=== PATIENT | female | born 1990 | race Caucasian/White ===

== ENCOUNTER 2022-10-26 08:25 | Emergency (ER) | payer BC, SELFPAY ==
[2022-10-26 08:26] VITALS: BP 146/100; PULSE 73; RESP 15; TEMP 36.2; O2SAT 99; BMI 39.1
--- NOTE | 2022-10-26 08:45 | ED.VIS.DENTA ---
HPI History of Present Illness Chief Complaint: Dental Narrative Narrative: 32-year-old female presenting with left-sided dental pain. She states in the left mandible. Patient was recently treated on the for upper tooth pain from the urgent care. She was put on amoxicillin. She finished the course. She has a dental appointment on the third. She now has pain in the lower jaw which is new. No facial swelling. No difficulty swallowing or breathing. No fevers, chills. PFSH PFSH Medical History no medical history Home Medications amoxicillin 875 mg-potassium clavulanate 125 mg tablet 1 tab PO BID #20 tabs 10/26/22 [Rx Last Taken Unknown] Allergy/AdvReac Type Severity Reaction Status Date / Time No Known Allergies Allergy Verified 10/26/22 08:27 Family History no significant family his Surgical History no surgical history Social History Smoking Status: Never smoker ROS ROS ED Constitutional Constitutional ED: Denies chills, fever(s) or sweats Eyes Eyes: Denies blurry vision or change in vision ENT ENT ED: Reports other Details: Left-sided dental pain left mandible ; Denies ear pain or sore throat Cardiovascular Cardiovascular: Denies chest pain, palpitations or racing heartbeat Respiratory/Chest Respiratory/Chest: Denies cough, dyspnea or sputum Gastrointestinal Gastrointestinal: Denies abdominal pain, constipation, diarrhea, nausea or vomiting Genitourinary Genitourinary ED: Denies dysuria, hematuria or urinary frequency Musculoskeletal Musculoskeletal: Denies arthralgias, myalgias or neck pain Integumentary Denies abscess, Abrasions or rash Neurologic Neurologic: Denies headache(s), paresthesias or weakness Psychiatric Psychiatric: Denies anxiety, depression, suicidal ideation or suicidal thoughts Endocrine Endocrinology: Denies polydipsia or polyuria EXAM Physical Exam Const Vital Signs: 10/26/22 08:26 Temperature 97.2 F L Temperature Source Temporal Pulse Rate 73 Respiratory Rate 15 Blood Pressure 146/100 H Blood Pressure Mean 115 Pulse Ox 99 Oxygen Delivery Method Room Air Positive well nourished General Appearance ED: NAD HEENT Face and Sinus: normal facial exam Nose: external nose normal and nares normal Mouth ED: Yes lips normal, Yes tongue normal, Yes salivary gland normal and Yes moist mucous membranes normal Mouth: lips normal, tongue normal and salivary gland normal Teeth and Gingiva: caries and poor dentition Throat: posterior oropharynx normal Neck no lymphadenopathy General: Negative for anterior neck swelling, tenderness or submandibular swelling Cardio regular rate and regular rhythm GI normal to inspection, nondistended, normoactive bowel sounds Neuro oriented x3 and CN's II-XII intact bilaterally Sensorium / Orientation: alert Psych mental status grossly normal MDM MDM MDM Narrative Medical decision making narrative: Patient presenting with left-sided dental pain. Most of her teeth are in poor condition. The area in her mouth that is hurting her today is around tooth #9 which is eroded pretty severely. The other teeth are in poor repair on this area. There is no abscess or other finding any associated gingiva. Tongue is not swollen. No sublingual edema, no submandibular edema. No concern for Neal's angina. Patient has an appointment with her dentist which is on the third. I recommend that she keep this. I will give her a dental referral sheet so that she can try to make a sooner appointment. Patient will be started on Augmentin since she is already been on amoxicillin. Return cautions discussed. Impression: 1. Dental infection 2. Dental caries Lab Data Attestation: I reviewed the patient's lab results. Discharge Plan Triage Chief Complaint: Dental ED Provider: Marlo Sancehz Dx/Rx/DC Orders Instructions: ED Dental Cavity Prescriptions: New amoxicillin-pot clavulanate 875-125 mg tablet 1 tab PO BID Qty: 20 0RF Primary Care Provider: Care Physician,No Primary Referrals: Care Physician,No Primary [Primary Care Provider] - Disposition Disposition: Home, Self Care
[2022-10-26] MEDS: Amox/Clavulanate 875 MG Tablet PO (08:54)
== END 2022-10-26 08:55 | disposition home or self-care (01) ==
LOC: ED 08:50
PROVIDERS: Emergency Provider Student in an Organized Health Care Education/Training Program; Visit Provider Student in an Organized Health Care Education/Training Program
DX: K02.9 Dental caries, unspecified (principal); K04.7 Periapical abscess without sinus
CPT/HCPCS: 99281; 99283

== ENCOUNTER 2025-02-10 16:22 | Emergency (ER) | payer SELFPAY ==
[2025-02-10 16:23] VITALS: BP 125/85; PULSE 75; RESP 16; TEMP 36.9; O2SAT 100; BMI 36.0
--- NOTE | 2025-02-10 17:00 | ED.VIS.LOWEX ---
HPI History of Present Illness HPI Narrative: Patient presents with right ankle pain that has been getting worse over the past week. Patient states that is gradually getting worse. Patient describes as aching and burning. Patient denies any trauma or injury. Patient states it is worse over the medial aspect of her ankle. Patient states nothing makes it worse and nothing makes it better. Patient denies any fevers or chills. Patient denies any calf tenderness or swelling. Chief Complaint: Lower Extremity Injury Informant: patient Onset/Context/Timing Onset: Weeks (1) Context: Gradual Onset Timing: Continuous Quality of Pain: Aching and Burning Location: Right ankle Worsened by: Nothing Relieved by: Nothing Associated Symptoms Associated Symptoms: Negative for Parasthesia, Weakness or Loss of Funtion [facility] Medical History (Updated 02/10/25 @ 17:[address] Westley Dominguez DO) Anxiety History of ITP Physical exam, pre-employment Home Medications ?Medication ?Instructions ?Recorded ?Last Taken ?Type amoxicillin 875 mg-potassium 1 tab PO BID #20 tabs 10/26/22 Unknown Rx clavulanate 125 mg tablet Allergy/AdvReac Type Severity Reaction Status Date / Time No Known Allergies Allergy Verified 02/10/25 16:23 Family History no significant family his Social History Smoking Status: Never smoker ROS ROS ED Constitutional Constitutional ED: Denies chills or fever(s) Eyes Eyes: Denies blurry vision or change in vision ENT ENT ED: Denies rhinorrhea or sore throat Cardiovascular Cardiovascular: Denies chest pain or palpitations Respiratory/Chest Respiratory/Chest: Denies cough or dyspnea Gastrointestinal Gastrointestinal: Denies nausea or vomiting Genitourinary Genitourinary ED: Denies dysuria or hematuria Musculoskeletal Musculoskeletal: Denies back pain or neck pain Integumentary Denies abscess or rash Neurologic Neurologic: Denies headache(s) or weakness Allergic/Immunologic Allergic/Immunologic ED: Denies mouth swelling or urticaria EXAM Physical Exam Const Vital Signs: 02/10/25 16:23 Temperature 98.4 F Temperature Source Oral Pulse Rate 75 Respiratory Rate 16 Blood Pressure 125/85 H Blood Pressure Mean 98 Pulse Ox 100 Oxygen Delivery Method Room Air Positive well nourished and well developed General Appearance ED: well developed and NAD HEENT Reports moist mucous membranes normocephalic and atraumatic Neck full ROM and supple Extremity Extremity Narrative: There is tenderness over the medial aspect of the right ankle. There is no bony crepitance or step-off. There is no deformity noted. There is mild edema noted. There is no ecchymosis. Range of motion is limited in all motions of the right ankle secondary to pain. Pedal pulses are equal bilaterally. Sensation is intact to light touch in all digits. Capillary refills less than 2 seconds in all digits. Neuro oriented x3, CN's II-XII intact bilaterally, moves all extremities and no sensory deficits noted Sensorium / Orientation: alert Motor Exam: strength 5/5 throughout Psych mental status grossly normal MDM MDM MDM Narrative Medical decision making narrative: Differential diagnosis included sprain, contusion, and occult fracture. X-rays of the right ankle will be obtained to assess for fracture. Radiography Diagnostic Testing: Clinical Impression(s) from Imaging Studies Ankle X-Ray 02/10/25 17:05 IMPRESSION: No acute fracture or dislocation. Moderate soft tissue swelling. Reading Location: [facility] X-rays of the right ankle were obtained. There are 3 views. On my independent interpretation, there is no acute fracture or dislocation noted. There is soft tissue swelling noted. Radiologist also interpreted the x-rays and agrees. Treatment and Re-Evaluation Narrative: Patient was advised of her findings. Patient was given an Aircast. Patient was instructed to ice and elevate her right ankle. Patient was instructed to follow-up with her primary care physician in 5 to 7 days. Patient was instructed to return if worse in any way. Patient understood and was agreeable with the plan. All questions were answered. Discharge Plan Triage Chief Complaint: Lower Extremity Injury ED Provider: Westley Dominguez Dx/Rx/DC Orders Clinical Impression: Acute right ankle pain Instructions: ED Ankle Sprain (Adult) Prescriptions: No Action amoxicillin-pot clavulanate 875-125 mg tablet 1 tab PO BID Qty: 20 0RF Primary Care Provider: Care Physician,No Primary Referrals: Nishant Sequeira MD [Med Staff - Environmental Studies Faculty Member] - 5-7 Days Care Physician,No Primary [Primary Care Provider] - Print Language: Dominican Disposition Disposition: Home, Self Care
--- NOTE | 2025-02-10 17:05 | RAD_ITS ---
PROCEDURE: ANKLE MIN 3 VIEWS 02/10/2025 REASON FOR EXAM: INJURY/PAIN TECHNIQUE: 3 views of the right ankle COMPARISON: None FINDINGS: No acute fracture or dislocation. Joint spaces are maintained ankle mortise within normal limits. Moderate bimalleolar soft tissue swelling, more prominent along the medial malleolus. Small posterior calcaneal enthesophytes. RAD/Ankle min 3 Views IMPRESSION: No acute fracture or dislocation. Moderate soft tissue swelling. Reading Location: [facility]
== END 2025-02-10 18:17 | disposition home or self-care (01) ==
PROVIDERS: Emergency Provider Emergency Medicine; Visit Provider Emergency Medicine
DX: M25.571 Pain in right ankle and joints of right foot (principal)
CPT/HCPCS: 73610; 99283